=== PATIENT | female | born 1995 | race Hispanic/Latino ===

== ENCOUNTER 2017-02-08 20:24 | Emergency (ER) | payer BC ==
[2017-02-08 20:49] VITALS: BP 115/76; PULSE 92; RESP 17; TEMP 98.5; O2SAT 100
--- NOTE | 2017-02-08 21:50 | ED PDOC ---
HPI: Female Pain Time Seen by Provider: 02/08/17 21:00 Chief Complaint (Nursing): Female Genitourinary Chief Complaint (Provider): Vaginal Bleeding History Per: Patient History/Exam Limitations: no limitations Onset/Duration Of Symptoms: Days (10) Current Symptoms Are (Timing): Still Present Additional Complaint(s): Gala Gold is a 21 y/o female presenting to the ER on 02/08/2017 with complaints of vaginal bleeding that has been persistent for ten days associated with mild suprapubic pain. Patient states episode began originally on 01/29 when the patient noted bright red blood from her vagina after she was voiding. She states she saw a pin puller for her symptoms and was put on Ciprofloxacin after being diagnosed with a UTI. Patient still experienced vaginal bleeding that changed into a dark red color, so her pin puller ordered an ultrasound five days ago. Patient still has not got those results back and is still experiencing her symptoms, prompting her to seek medical evaluation. Patient's LMP was in December 2016. Patient notes she is currently on new control medication. Denies fever, vomiting, or dysuria. Past Medical History Reviewed: Historical Data, Nursing Documentation, Vital Signs Vital Signs: Last Vital Signs Temp 98.5 F 02/08/17 20:39 Pulse 92 H 02/08/17 20:39 Resp 17 02/08/17 20:39 BP 115/76 02/08/17 20:39 Pulse Ox 100 02/08/17 20:39 - Medical History PMH: No Chronic Diseases - Surgical History Surgical History: No Surg Hx - Family History Family History: States: Unknown Family Hx - Social History Current smoker - smoking cessation education provided: No Alcohol: None Drugs: Denies - Allergies Allergies/Adverse Reactions: Allergies Allergy/AdvReac Type Severity Reaction Status Date / Time No Known Allergies Allergy Verified 02/08/17 20:49 Review of Systems ROS Statement: Except As Marked, All Systems Reviewed And Found Negative Constitutional: Negative for: Fever Gastrointestinal: Negative for: Vomiting Genitourinary Female: Positive for: Vaginal Bleeding. Negative for: Dysuria Physical Exam - Reviewed Nursing Documentation Reviewed: Yes Vital Signs Reviewed: Yes - Physical Exam Appears: Positive for: Non-toxic, No Acute Distress Head Exam: Positive for: ATRAUMATIC, NORMOCEPHALIC Skin: Positive for: Normal Color. Negative for: Rash Eye Exam: Positive for: Normal appearance, EOMI, PERRL Neck: Positive for: Normal, Painless ROM, Supple Cardiovascular/Chest: Positive for: Regular Rate, Rhythm. Negative for: Murmur Respiratory: Positive for: Normal Breath Sounds. Negative for: Wheezing, Respiratory Distress Gastrointestinal/Abdominal: Positive for: Normal Exam, Soft. Negative for: Tenderness Extremity: Positive for: Normal ROM. Negative for: Deformity, Swelling Neurologic/Psych: Positive for: Alert, Oriented. Negative for: Motor/Sensory Deficits - Laboratory Results Result Diagrams: 02/08/17 22:07 02/08/17 22:07 - ECG O2 Sat by Pulse Oximetry: 100 Medical Decision Making Medical Decision Makin:16 Initial Impression- 21 y/o female with vaginal bleeding. R/o dysfunctional uterine bleeding Initial Plan- * CMP * CBC w/ differential * Urine C&S * Urinalysis * US Transvaginal 22:39 Pt is refusing US Transvaginal as well as pelvic exam 2319 Pt will follow up with [employer] tomorrow, Hemoglobin in stable. pt state bleeding almost completely resolved at this point Documented by Jolynn Morillo, acting as a scribe for Johana Boss MD. All medical record entries made by the Scribe were at my direction and personally dictated by me. I have reviewed the chart and agree that the record accurately reflects my personal performance of the history, physical exam, medical decision making, and the department course for this patient. I have also personally directed, reviewed, and agree with the discharge instructions and disposition. Disposition - Clinical Impression Clinical Impression: Female genitourinary symptoms, Dysfunctional uterine bleeding - Patient ED Disposition Is Patient to be Admitted: No Doctor Will See Patient In The: Office Counseled Patient/Family Regarding: Studies Performed, Diagnosis, Need For Followup - Disposition Disposition: Routine/Home Disposition Time: 23:00 Condition: IMPROVED Additional Instructions: follow up with your pin puller in 1-2 days return to the ED with any worsening or concerning symptoms. Instructions: Dysfunctional Uterine Bleeding (ED)
[2017-02-08 22:11] LABS: BASO % 0.5 % (0.0-2.0); EOS # 0.1 K/uL (0.0-0.7); HEMATOCRIT 39.2 % (34.0-47.0); LYMPH # 3.5 K/uL (1.0-4.3); LYMPH % 47.1 % (20.0-40.0); MEAN CELL VOLUME 86.4 fl (81.0-99.0); MEAN CORPUSCULAR HEMOGLOBIN 28.7 pg (27.0-31.0); MEAN CORPUSCULAR HGB CONC 33.3 g/dL (33.0-37.0); MEAN PLATELET VOLUME 8.1 fl (7.2-11.7); MONO # 0.6 K/uL (0.0-0.8); NEUT # 3.1 K/uL (1.8-7.0); NEUT % 42.4 % (50.0-75.0); RED CELL DISTRIBUTION WIDTH 13.9 % (11.5-14.5); WHITE BLOOD COUNT 7.4 K/uL (4.8-10.8)
[2017-02-08 22:21] LABS: ALB/GLOB RATIO 1.2 (1.0-2.1); ALKALINE PHOSPHATASE 51 U/L (38-126); ALT/SGPT 35 U/L (9-52); AST/SGOT 31 U/L (14-36); BILIRUBIN,TOTAL 0.5 mg/dl (0.2-1.3); BLOOD UREA NITROGEN 13 mg/dl (7-17); CALCIUM 9.2 mg/dL (8.4-10.2); CARBON DIOXIDE 22 mmol/L (22-30); CHLORIDE 102 mmol/L (98-107); GFR AFRICAN-AMERICAN > 60; GLUCOSE,RANDOM 79 mg/dL (65-105); POTASSIUM 3.7 MMOL/L (3.6-5.0); SODIUM 136 mmol/l (132-148); TOTAL PROTEIN 8.1 G/DL (6.3-8.2)
[2017-02-08 22:31] LABS: RBC URINE 30 /hpf (0-3); URINE BACTERIA MOD (<OCC); URINE BILIRUBIN NEGATIVE (NEGATIVE); URINE BLOOD LARGE (NEGATIVE); URINE COLOR STRAW (YELLOW); URINE GLUCOSE (UA) NEG (Normal); URINE KETONE NEGATIVE (NEGATIVE); URINE LEUKOCYTE ESTERASE NEG Leu/uL (Negative); URINE PROTEIN NEGATIVE (NEGATIVE); URINE UROBILINOGEN 0.2-1.0 mg/dL (0.2-1.0); WBC URINE 4 /hpf (0-5)
== END 2017-02-08 23:30 | disposition home or self-care (01) ==
LOC: H.ER 20:24
DX: N93.8 Other specified abnormal uterine and vaginal bleeding (principal)